=== PATIENT | male | born 1980 | race Caucasian/White ===

== ENCOUNTER → 2017-09-20 | Outpatient (CLI) | payer OTHER ==
[~2017-09-20] MED LIST: BUPR-474 PO; DEXT10TA9 PO; META800T18 PO; OMEP40CA48 PO
[2017-09-20 10:40] LABS: PLATELET COUNT, AUTOMATED 301 K/uL (150-450)
[2017-09-20 10:58] LABS: LDL CHOLESTEROL 157 mg/dl
== END ==
LOC: LAB 09:26
PROVIDERS: ATTEND Nurse Practitioner Family
DX: Z00.00 Encounter for general adult medical examination without abnormal findings (principal); Z12.5 Encounter for screening for malignant neoplasm of prostate; Z13.1 Encounter for screening for diabetes mellitus; E78.2 Mixed hyperlipidemia; I10 Essential (primary) hypertension; R53.83 Other fatigue; E55.9 Vitamin D deficiency, unspecified; Z86.39 Personal history of other endocrine, nutritional and metabolic disease; R68.82 Decreased libido
CPT/HCPCS: 36415; 82040; 82247; 82306; 82310; 82374; 82435; 82465; 82565; 82607; 82947; 83036; 83718; 84075; 84132; 84153; 84155; 84270; 84295; 84403; 84443; 84450; 84460; 84478; 84520; 85025; 86140

== ENCOUNTER → 2018-02-01 | Outpatient (CLI) | payer OTHER ==
--- NOTE | 2018-02-01 16:22 | RADIOLOGY IMAGING REPORT ---
[place] [facility] [place] NAME: Daniele Powell : 1980 MR: [id number] V: [id number] EXAM DATE: ORDERING PHYSICIAN: LIZZIE ISLAS TECHNOLOGIST: Location: [facility] Patient: Daniele Powell : 1980 Visit/Account:[id number] Date of Sevice: 02/01/2018 Technique: FOOT 3 VIEW RIGHT HISTORY: Lateral foot swelling Comparison studies: None FINDINGS: There is no acute fracture. The alignment of the right foot is maintained. Small Achilles e nthesophyte is noted. Soft tissues are unremarkable. IMPRESSION: 1. No acute osseous process. Report Dictated By: Geoffrey Gamez DO at 02/01/2018 4:16 PM Report E-Signed By: Geoffrey Gamez DO at 02/01/2018 4:18 PM WSN:[id number]
== END ==
LOC: RAD 15:39
PROVIDERS: ATTEND Nurse Practitioner Family
DX: M79.671 Pain in right foot (principal); R22.41 Localized swelling, mass and lump, right lower limb

== ENCOUNTER → 2018-02-17 | Outpatient (CLI) | payer OTHER ==
[2018-02-17 08:45] LABS: LDL CHOLESTEROL 113 mg/dl
== END ==
LOC: LAB 08:13
PROVIDERS: ATTEND Nurse Practitioner Family
DX: R79.89 Other specified abnormal findings of blood chemistry (principal); E29.1 Testicular hypofunction; Z86.39 Personal history of other endocrine, nutritional and metabolic disease; E78.2 Mixed hyperlipidemia; R68.82 Decreased libido; E55.9 Vitamin D deficiency, unspecified
CPT/HCPCS: 36415; 82040; 82247; 82306; 82310; 82374; 82435; 82465; 82565; 82607; 82670; 82947; 83718; 84075; 84132; 84155; 84270; 84295; 84403; 84450; 84460; 84478; 84520

== ENCOUNTER → 2018-03-27 | Outpatient (CLI) | payer OTHER ==
[~2018-03-27] MED LIST changes: +LISD40TA; +LISI5TAB25 PO; +METF-450 PO
== END ==
LOC: AUD 08:30
PROVIDERS: ATTEND Nurse Practitioner Family
DX: Z01.00 Encounter for examination of eyes and vision without abnormal findings (principal)
CPT/HCPCS: 92552

== ENCOUNTER → 2018-04-24 | Outpatient (CLI) | payer OTHER ==
[~2018-04-24] MED LIST changes: +AMLO-104 PO; +ASPI81TA94 PO; +BARIUM SULFATE 148 GM POWDER ONE; +BARIUM SULFATE 240 ML ORAL SUS (NECTAR) ONE; +LISI-362 PO; +PROP10TA58 PO
--- NOTE | 2018-04-24 12:03 | SLP MODIFIED BARIUM SWALLOW ---
Speech Language Pathology Modified Barium Swallow Evaluation Report Ordering Physician: Rafiq Sanches MD Clinician: Ashlee Kerr MS, CCC-PROJECT PLANNER Type of Assessment: Modified Barium Swallow Study Patient: Daniele Powell : [birth year], 38yo Evaluation Date: 04/24/18 BACKGROUND The patient is a 38 year old male referred for a modified barium swallow study (MBSS) due to self-reported concerns with aspiration. The pt describes solid food intermittently sticking in his throat in addition to recurrent aspiration of liquids. The pt also presents with a history of GERD. He endorses consuming 6 or more cups of coffee per day. His symptoms are somewhat managed by daily omeprazole. A flexible laryngoscopy was performed on 03/03/18. Results illustrated severe interarytenoid edema. Non-verbal Oral Structure and Function: WNL Pain with Swallow: denies Current Diet: regular solids, thin liquids MODIFIED BARIUM SWALLOW In conjunction with radiology, the pt was seated in the lateral view and analyzed with self-served trials of the following consistencies: thin liquids via single cup sip and consecutive cup sip, pureed solids, mechanically soft solids, regular solids, mixed consistencies, and a 1cm barium pill paired with water. * Indicates impairment ORAL PHASE - WFL Lip Closure: WFL. Full seal obtained. Tongue Control during Bolus Hold: WFL. Trace, premature posterior loss of liquid component noted during mastication of solids with trial of mixed textures. Normal deviation. Bolus preparation and mastication: WFL. Timely and complete mastication. Bolus transport/Lingual motion: WFL. Timely A-P transit with normal lingual stripping wave. Oral Residue: WFL. Normal oral clearance. PHARYNGEAL PHASE - Mild Impairment Initiation of Pharyngeal Swallow: WFL Soft palate elevation: WFL Tongue base retraction: WFL. Complete contact against posterior pharyngeal wall. Laryngeal elevation: WFL Anterior hyolaryngeal excursion: WFL Epiglottic inversion: WFL *Laryngeal Vestibule Closure: contrast noted between arytenoids and epiglottis resulting in flash penetration during consumption of thin liquids. Interarytenoid edema may be contributing to decreased closure. Pharyngeal stripping wave: WFL *UES opening: decreased UES relaxation with mild residue witnessed in pyriforms across trials. *Pharyngeal residue: Mild to mod residue in valleculae and pyriform sinuses across trials. *ESOPHAGEAL STAGE Contents (barium pill, water) successfully cleared to stomach during esophageal sweep. However, material was intermittently slow to pass through the cervical esophagus. Pt also with history of GERD and interarytenoid edema. A GI referral is recommended. The pts oral phase is within normal limits (WNL) with adequate strength, range of motion, speed and coordination of all oral musculature for timely and complete mastication, appropriate bolus formation, good bolus control, and efficient anterior to posterior transit in oral cavity. Initiation of the pharyngeal swallow was normal. However, duration of pharyngeal transit time was mildly prolonged across all consistencies tested. During pharyngeal swallow of thin liquids, contrast was noted between the arytenoids and epiglottis resulting in flash penetration. Material did not remain in the pts airway (PAS 2). Interarytenoid edema may be contributing to decreased laryngeal vestibule closure. Mildly decreased relaxation of the upper esophageal sphincter (UES) was noted with associated residue in the pyriform sinuses. The amount of residue increased in quantity in correlation with the size of the bolus, and with solid vs pureed or liquid textures. Mild to moderate residue was also observed in the vallecular space. The cause of vallecular residue was unclear as epiglottic inversion, hyolaryngeal movement, and tongue base retraction were all considered within normal limits. Vallecular residue paired with prolonged pharyngeal transit time is a pattern sometimes observed in patients with chronic obstructive pulmonary disease (COPD). The pts sensation was intact with independent execution of double swallows to clear residue from pharynx. Alternation of liquids/solids further helped to clear pharyngeal residue. Although aspiration was not witnessed during this pts MBSS, reflux aspiration or aspiration of post-swallow residuals may occur. Penetration/Aspiration Scale (PAS)*: Thin liquids (large, consecutive cup sips): Score of 2, Material enters the airway, remains above the vocal folds, and is ejected from the airway. All other consistencies: Score of 1, Material does not enter airway *(Rosenbek et al. 1996) SUMMARY and RECOMMENDATIONS Dysphagia Outcome Severity Scale: Level 6; modified independence. It is recommended that the pt avoid problematic food, adhere to GERD precautions, and modify eating habits when difficulty with swallowing occurs. Aspiration Risk: mildly elevated due to history of acid reflux, witnessed residue in pharynx, and risk for post-swallow aspiration. Recommended Diet: regular solids Recommended Liquids: thin Liquids Recommended form of Medications: whole, with thin liquids Compensatory Strategies: avoid problematic foods, adhere to reflux precautions (upright positioning during PO intake, elevate head of bed at a 30 degree angle, eat several smaller meals per day, nothing to eat/drink within 2 hours of bedtime, reduce intake of caffeine/alcohol/fatty foods/spicy foods, etc, take medications as prescribed) Speech Therapy Need: Skilled ST interventions not warranted for this patient. Source of dysphagia appears gastroesophageal in nature. Referral: GI consult Thank you for this referral. Please call [phone] to contact the PROJECT PLANNER. Ashlee Kerr M.S., [facility]-PROJECT PLANNER Physician Signature Date [*] MTDD
--- NOTE | 2018-04-24 13:11 | RADIOLOGY IMAGING REPORT ---
FACILITY: [facility] [place] PATIENT NAME: Daniele Powell : 1980 MR: [id number] V: [id number] EXAM DATE: ORDERING PHYSICIAN: KYLE PRASAD TECHNOLOGIST: Location: [facility] Patient: Daniele Powell : 1980 Visit/Account:[id number] Date of Sevice: 04/24/2018 Exam type: ESOPH VIDEO SWALLOWING History: dysphagia Comparison: None. Findings: Modified barium swallow was performed by the speech pathologist. Fluoroscopic assistance was provide d. Patient received thin barium a barium tablet and various solids substances. There is mild pharyn geal dysphasia trace laryngeal penetration with thin liquids and mild to moderate esophageal dysphasi a. He see the speech pathologist report for complete details. The fluoroscopy dose area product was 527.95 micro-Sheehan per meter squared IMPRESSION: 1. As above Report Dictated By: Elle Savage MD at 04/24/2018 1:06 PM Report E-Signed By: Elle Savage MD at 04/24/2018 1:07 PM WSN:[email or web address]
== END ==
LOC: RAD 03:43
PROVIDERS: ATTEND Radiology Diagnostic Radiology
DX: R13.14 Dysphagia, pharyngoesophageal phase (principal)
CPT/HCPCS: 74230

== ENCOUNTER 2018-05-01 00:46 | Day surgery (SDC) | payer OTHER ==
[2018-05-01] VITALS (7 sets, daily range): BP systolic 113–146; BP diastolic 76–94
[~2018-05-01] VITALS: Ht 188 cm; Wt 133.4 kg
[~2018-05-01 00:46] MED LIST changes: -BARIUM SULFATE 148 GM POWDER ONE; -BARIUM SULFATE 240 ML ORAL SUS (NECTAR) ONE
[2018-05-01] MEDS ORDERED: MIDAZOLAM 2 MG/2 ML VIAL IVP PRN (06:30)
[2018-05-01] MEDS ORDERED: NORMOSOL R SOLN(*) 1000 ML BAG 1,000 ML IV PRN (06:30)
[2018-05-01] MEDS ORDERED: LIDOCAINE/SOD BICARB 8.4% SYR ID ONE (06:30)
[2018-05-01] MEDS ORDERED: fentaNYL CITR 250 MCG/5 ML AMP ONE (06:53)
[2018-05-01] MEDS ORDERED: PROPOFOL EMUL(*) 10MG/ML 20 ML 40 ML ONE (06:54)
[2018-05-01] MEDS ORDERED: DEXAMETHASONE SOD PHOS 10MG/ML ONE (06:54)
[2018-05-01] MEDS ORDERED: ONDANSETRON 4 MG/2 ML VIAL ONE (06:54)
[2018-05-01] MEDS ORDERED: LIDOCAINE MPF 1% 5 ML VIAL ONE (06:54)
[2018-05-01] MEDS ORDERED: KETAMINE HCL 200 MG/20 ML MDV ONE (06:56)
[2018-05-01] MEDS ORDERED: SUGAMMADEX SOD 200 MG/2 ML SDV ONE (06:56)
--- NOTE | 2018-05-01 07:05 | EKG ---
FACILITY: [facility] [place] PATIENT NAME: FRANCI HAMMOND : [id number] MR: [id number] V: [id number] EXAM DATE: ORDERING PHYSICIAN: MEAGHAN ORTIZ TECHNOLOGIST: TERESSA Sanchez Reason : PRE-OP Blood Pressure : / mmHG Vent. Rate : 079 BPM Atrial Rate : 079 BPM P-R Int : 200 ms QRS Dur : 100 ms QT Int : 360 ms P-R-T Axes : 042 057 040 degrees QTc Int : 412 ms Normal sinus rhythm Normal ECG No previous ECGs available Confirmed by KAREN APONTE ([id number]) on 05/01/2018 12:02:19 PM Referred By: OSMAR Confirmed By:KAREN APONTE
[2018-05-01] MEDS ORDERED: ceFAZolin(*) 2GM/D5W 50ML 50 ML IVPB ONE (07:10)
[2018-05-01] MEDS ORDERED: LIDOCAINE 2% JELLY 5 ML TUBE ONE (07:52)
[2018-05-01] MEDS ORDERED: HALOPERIDOL LACT 5 MG/ML VIAL IM ONE (07:59)
[2018-05-01] MEDS ORDERED: fentaNYL CITR 100 MCG/2 ML AMP ONE (08:43)
[2018-05-01] MEDS ORDERED: PER PO (09:02)
[2018-05-01] MEDS ORDERED: AMOX500T10 PO (09:02)
[2018-05-01] MEDS ORDERED: LIDO15SO2 PO (09:03)
--- NOTE | 2018-05-01 13:53 | OPERATIVE REPORT 1 ---
EVENT DATE: May 01, 2018 SURGEON: Rafiq Sanches Jr., MD ANESTHESIOLOGIST: Ruben August MD ANESTHESIA: LMA. PROCEDURE PERFORMED Tonsillectomy. PREOPERATIVE DIAGNOSIS Recurrent acute tonsillitis. POSTOPERATIVE DIAGNOSIS Recurrent acute tonsillitis. INDICATIONS Please refer to the preoperative note. DESCRIPTION OF PROCEDURE The patient was positively identified in the preoperative area. He was there alone. Risks and benefits were explained including, but not limited to, bleeding, infection and those associated with anesthesia. He acknowledged understanding those risks. He was then brought back to the operating room, laid supine on the operating table and anesthesia was administered. Once asleep, the patient was positioned, prepped and draped in the usual sterile fashion. A McIvor Mouth Gag was placed in the patient's oral cavity. Red rubber catheter was placed through the right nostril and utilized to suspend the soft palate. The patient was noted to have 2+ tonsils. The right tonsil was grasped with curved Allis forceps and carefully dissected from the lateral pharyngeal wall with suction Bovie electrocautery. In a similar fashion, the contralateral tonsil was removed. Hemostasis was obtained with suction Bovie electrocautery. The patient was then returned to Anesthesia for emergence. ESTIMATED BLOOD LOSS 10 cc. COMPLICATIONS No complications. MTDD
== END 2018-05-01 09:20 | disposition home or self-care (01) ==
LOC: OR 00:46
PROVIDERS: ATTEND Otolaryngology
DX: J03.91 Acute recurrent tonsillitis, unspecified (principal); E78.5 Hyperlipidemia, unspecified; I10 Essential (primary) hypertension; K21.9 Gastro-esophageal reflux disease without esophagitis; F32.9 Major depressive disorder, single episode, unspecified; F17.210 Nicotine dependence, cigarettes, uncomplicated
CPT/HCPCS: 36416; 42826; 82948; 88304; 93005; J1100; J1630; J2001; J2250; J2405; J2704; J3010; J3490; J0690